=== PATIENT | female | born 1970 | race Two or more races ===

== ENCOUNTER → 2018-08-26 | Emergency (ER) | payer OTHER ==
[~2018-08-26] VITALS: Ht 154.9 cm; Wt 93.9 kg
[~2018-08-26] MED LIST: HUMALOG100 UNIT/1; LANTUS SOL100 UNIT/1
== END | disposition left against medical advice (07) ==
LOC: ER 15:40
DX: E11.65 Type 2 diabetes mellitus with hyperglycemia (principal); R11.2 Nausea with vomiting, unspecified